=== PATIENT | female | born 1995 | race Two or more races ===

== ENCOUNTER 2024-12-08 08:34 | Emergency (ER) | payer OTHER ==
[~2024-12-08] VITALS: Ht 170.2 cm; Wt 85.0 kg
[2024-12-08] MEDS: SODIUM CHLORIDE 0.9% 1,000 ML IV ONE (08:51)
[2024-12-08 08:52] VITALS: TEMP 98.3
--- NOTE | 2024-12-08 08:53 | ED.PDOC ---
History of Present Illness HPI Comments 29F BIBA w/ prior hx of , and UTI, as well as the c/c of ABN vaginal bleeding. Pt report son having abnormal vaginal bleeding starting Wednesday, and being . Pt states on going to [facility], and having an US done w/ the results being that there was no heartbeat found. Pt called 911 today due from her va ginal bleeding which started on Wednesday worsened today, w/ periumbilical cramps of a 6/10 and N/V. Family hx f DM. Denies chills, fever, /D, SOB, CP. No other associated symptoms, modifiers, recent injuries or sick contacts present at this time. Time Seen by MD: 08:40 Reviewed Notes: Nurses Notes, Narcotics Investigator Notes, Medications, Allergies Allergies: Coded Allergies: NO KNOWN ALLERGIES (Unverified , 12/08/24) Information Source: Patient Mode of Arrival: EMS Severity: Moderate Timing: Days Duration: Since onset, Days Prehospital treatment: None Past Medical History PAST MEDICAL HISTORY: UTI'S Past Medical History (Other): Surgical History: Denies all surgeries AVIATION CONSULTANT History: No Pertinent AVIATION CONSULTANT History Family History Family History: Reviewed,noncontributory to illness, Family hx of DM Social History Smoker: Non-Smoker Alcohol: Denies ETOH Use Drugs: Denies Drug Use Lives In: Home Constitutional: denies: chills, diaphoresis, fatigue, fever, malaise, sweats, weakness, others EENTM: denies: blurred vision, double vision, ear bleeding, ear discharge, ear drainage, ear pain, ear ringing, eye pain, eye redness, hearing loss, mouth pain, mouth swelling, nasal discharge, nose bleeding, nose congestion, nose pain, photophobia, tearing, throat pain, throat swelling, voice changes, others Respiratory: denies: cough, hemoptysis, orthopnea, SOB at rest, shortness of breath, SOB with excertion, stridor, wheezing, others Cardiovascular: denies: chest pain, dizzy spells, diaphoresis, Dyspnea on exertion, edema, irregular heart beat, left arm pain, lightheadedness, palpitations, PND, syncope, others Gastrointestinal: reports: abdominal pain; denies: abdomen distended, blood streaked bowels, constipated, diarrhea, dysphagia, difficulty swallowing, hematemesis, melena, nausea, poor appetite, poor fluid intake, rectal bleeding, rectal pain, vomiting, others Genitourinary: reports: abnormal vagina bleeding; denies: burning, dyspareunia, dysuria, flank pain, frequency, hematuria, incontinence, pain, , vagina discharge, urgency, others Neurological: denies: dizziness, fainting, headache, left sided numbness, left sided weakness, numbness, paresthesia, pre-existing deficit, right sided numbness, right sided weakness, seizure, speech problems, tingling, tremors, weakness, others Musculoskeletal: denies: back pain, gout, joint pain, joint swelling, muscle pain, muscle stiffness, neck pain, others Integumetry: denies: bruises, change in color, change in hair/nails, dryness, laceration, lesions, lumps, rash, wounds, others Allergic/Immunocompromised: denies: Difficulty Healing, Frequent Infections, Hives, Itching, others Hematologic/Lymphatic: denies: anemia, blood clots, easy bleeding, easy bruising, swollen glands, others Endocrine: denies: excessive hunger, excessive sweating, excessive thirst, excessive urination, flushing, intolerance to cold, intolerance to heat, unexplained weight gain, unexplained weight loss, others Psychiatric: denies: anxiety, bipolar disorder, depression, hopeless, panic disorder, schizophrenia, sleepless, suicidal, others All Other Systems: Reviewed and Negative Physical Exam General Appearance: No Apparent Distress HEENT: Normal ENT Inspection, Pharynx Normal, TMs Normal Neck: Full Range of Motion, Non-Tender, Normal, Normal Inspection Respiratory: Chest Non-Tender, Lungs Clear, No Accessory Muscle Use, No Respiratory Distress, Normal Breath Sounds Cardiovascular: No Edema, No JVD, No Murmur, No Gallop, Normal Peripheral Pulses, Regular Rate/Rhythm Breast Exam: Deferred Gastrointestinal: No Organomegaly, No Pulsatile Mass, Normal Bowel Sounds, Soft, Suprapubic, Tenderness Genitalia: Deferred Pelvic: Deferred Rectal: Deferred Extremities: No calf tenderness, Normal capillary refill, Normal inspection, Normal range of motion, Non-tender, No pedal edema Musculoskeletal : Apperance: Normal Neurologic: Alert, copyman II-XII nml as Tested, No Motor Deficits, Normal Affect, Normal Mood, No Sensory Deficits Cerebellar Function: Normal Reflexes: Normal Skin: Dry, Normal Color, Warm Lymphatic: No Adenopathy Was a procedure done? Was a procedure done?: No Differential Dx Considerations may include: Complete , inevitable , dehydration X-Ray, Labs, Meds, VS Vital Signs Date Time Temp Pulse Resp B/P (MAP) Pulse Ox O2 Delivery O2 Flow Rate FiO2 12/08/24 08:52 98.3 100 18 102/74 (83) 99 98.3 Lab Test 12/08/24 08:56 Range/Units Beta HCG, Quantitative 2302.9 H 1.5-4.2 mIU/mL Current Medications Medications (Trade) Dose Ordered Sig/Juliette Route Start Time Stop Time Status Last Admin Sodium Chloride 1,000 ml @ 1,000 mls/hr Q1H ONCE IV 12/08/24 08:45 12/08/24 09:44 DC 12/08/24 08:51 IMPRESSION: 1. No intrauterine visualized. Correlate with clinical findings and serial beta HCG levels. Follow-up ultrasound could be considered if clinically indicated. 2. Endometrium is heterogeneous. There appear to be blood products in the endometrial canal and endocervical canal. Echogenic structure measuring up to 6 cm in the vaginal canal seen on transabdominal exams is not seen on transvaginal examination after voiding, likely also blood products. 3. Unremarkable sonographic appearance of both ovaries. ESSION: 1. No intrauterine visualized. Correlate with clinical findings and serial beta HCG levels. Follow-up ultrasound could be considered if clinically indicated. 2. Endometrium is heterogeneous. There appear to be blood products in the endometrial canal and endocervical canal. Echogenic structure measuring up to 6 cm in the vaginal canal seen on transabdominal exams is not seen on transvaginal examination after voiding, likely also blood products. 3. Unremarkable sonographic appearance of both ovaries. An IV Hep-Lock was established and the patient was given a 1 L bolus The patient was quantitative hCG is 2302 point The patient was discharged and will follow up with the primary care doctor The patient will return to the emergency department's condition worsens Images Reviewed?: Images reviewed and evaluated by me Time of 1ST Reevaluation: 09:10 Reevaluation 1ST: Unchanged Patient Education/Counseling: Diagnosis, Treatment, Prognosis, Need For Follow Up Family Education/Counseling: No Family Present Departure 1 Departure Time of Disposition: 11:01 Impression: Primary Impression: Inevitable Disposition: HOME / SELF CARE / HOMELESS Condition: Fair Discharged With: Self Critical Care Note Critical Care Time?: No Stability Stability form required: No Heart Score Heart Score: Heart Score Response (Comments) Value History N/A 0 EKG N/A 0 Age N/A 0 Risk Factors N/A 0 Troponin N/A 0 Total 0 I personally scribed for SARAHI SANDY MD ([email or web address]) on 12/08/24 at 08:53. Electronically submitted by Fransico Rojas ([place]). I personally scribed for SARAHI SANDY MD ([email or web address]) on 12/08/24 at 11:00. Electronically submitted by Fransico Rojas ([place]). SARAHI SANDY MD December 08, 2024 08:53
--- NOTE | 2024-12-08 10:50 | DVH ---
CLINICAL HISTORY: pain and bleeding COMPARISON:None TECHNIQUE: Transvaginal and transabdominal grayscale sonographic imaging of the uterus and ovaries wa s performed, assisted by color Doppler technique. Duplex Doppler ultrasound of both ovaries was also performed. FINDINGS: The uterus measures 8.8 x 5.3 x 4.7 cm. There is homogeneous echogenicity. Endometrial thic kness measures 10.1 cm, within normal limits for premenopausal. Endometrium is heterogeneous. No intr auterine visualized. Echogenic structure within the vaginal canal on the transabdominal images measuring up to 6.0 x 4.9 x 5.7 cm, not seen transvaginally after voiding. Possible blood products. Right ovary measures 2.5 x 1.5 x 2.6 cm. Arterial and venous blood flow demonstrated. Left ovary measures 2.0 x 1.3 x 2.4 cm. Arterial and venous blood flow demonstrated. IMPRESSION: 1. No intrauterine visualized. Correlate with clinical findings and serial beta HCG levels . Follow-up ultrasound could be considered if clinically indicated. 2. Endometrium is heterogeneous. There appear to be blood products in the endometrial canal and endoc ervical canal. Echogenic structure measuring up to 6 cm in the vaginal canal seen on transabdominal e xams is not seen on transvaginal examination after voiding, likely also blood products. 3. Unremarkable sonographic appearance of both ovaries.
[2024-12-08 12:08] VITALS: PULSE 83; RESP 19; O2SAT 97
[2024-12-08] MEDS: SODIUM CHLORIDE 0.9% 1,000 ML IVB ONE (12:22)
[2024-12-08 12:28] LABS: Basophils # (auto) 0 10 ^3/uL (0-0.2); Basophils % (auto) 0.3 % (0.0-2.0); Eosinophils # (auto) 0.1 10 ^3/uL (0-0.8); Eosinophils % (auto) 0.9 % (0.0-7.0); Hematocrit 34.8 % (36.0-46.0); Hemoglobin 11.7 g/dL (12.2-16.2); Lymphocytes # (auto) 2.5 10 ^3/uL (0.4-5.4); Lymphocytes % (auto) 29.6 % (10.0-50.0); Mean Corpuscular Hemoglobin 28.8 pg (28.0-32.0); Mean Corpuscular Hgb Conc. 33.6 g/dL (32.0-36.0); Mean Corpuscular Volume 85.8 fL (80.0-100.0); Monocytes # (auto) 0.5 10 ^3/uL (0-1.3); Monocytes % (auto) 5.9 % (0.0-12.0); Neutrophils # (auto) 5.3 10 ^3/uL (1.6-8.6); Neutrophils % (auto) 63.3 % (37.0-80.0); Nucleated Red Blood Cells % 0.1 %; Platelet Count (auto) 232 10^3/uL (140-450); Red Blood Cells 4.05 10^6/uL (4.0-5.20); White Blood Cell 8.4 10^3/uL (4.4-10.8)
[2024-12-08 12:32] LABS: Potassium 3.7 mmol/L (3.5-5.1); Sodium 141 mmol/L (136-145)
[2024-12-08 12:33] LABS: Anion Gap 10 (5-15); Carbon Dioxide 23 mmol/L (20-31)
[2024-12-08 12:34] LABS: Calcium 9.4 mg/dL (8.7-10.4); Chloride 108 mmol/L (98-107)
[2024-12-08 12:38] LABS: BUN/Creatinine Ratio 12.5 (10.0-20.0)
[2024-12-08 12:42] LABS: Blood Urea Nitrogen 8 mg/dL (9-23); Glucose 135 mg/dL (74-106)
[2024-12-08] MEDS: LACT. RINGERS/OXYTOCIN 20UNITS 1,000 ML IV ONE (12:43)
[2024-12-08 12:47] LABS: INR 1.06 (0.9-1.15); Partial Thromboplastin Time 25.4 SEC (24.5-34.5); Prothrombin Time 11.2 sec (9.3-11.8)
[2024-12-08 14:18] VITALS: BP 107/44; PULSE 81; RESP 27; O2SAT 99
--- NOTE | 2024-12-08 15:10 | DVHINCON2 ---
Date of service: December 08, [address] bhavana mathew md Reason for Consultation vag bleeding History of Present Illness pt presents with vag bleeding passage of tissue,sono reveals no iup,endo doesnt show any poc. pt passed tissue and blood clots ,bhcg was 2300 at 8am and she was passing tissue and blood clots Past Medical History na Past Surgical History na Family History na Social History Allergies: Coded Allergies: NO KNOWN ALLERGIES (Unverified , 12/08/24) Review of Systems Constitutional: no fever, chill, weight loss HEENT: no eye pain, no hearing loss, no oral lesion, no scleral icterus Heart: no chest pain, no chest pressure Lung: no cough, no dyspnea with exertion Abdomen: see HPI : no pain with urination, normal appearing urine Musculoskeletal: no joint pain, no muscle pain Neurological: no seizure, no loss of sensation, no weakness in extremities Pysch: no depression, no anxiety Derm: no rash, no jaundice Vital Signs Vital Signs Date Time Temp Pulse Resp B/P (MAP) Pulse Ox O2 Delivery O2 Flow Rate FiO2 12/08/24 14:18 81 27 107/44 (65) 99 12/08/24 12:08 Room Air* 0 21 12/08/24 08:52 98.3 98.3 Physical Exam SKIN: [nl ] HEENT: [nl] NECK: [nl] CARDIAC: [rrr] PULMONARY: [cta] ABDOMEN: [soft,nt] MUSCULOSKELETAL: [nl ] NEURO:nl pelvic- vag no blood clots,not bleeding actively ,large blood clot and tissue on bed noted cx ft,uterus 8 wks size,nt Labs/Diagnostic Data Labs Test 12/08/24 08:56 Range/Units White Blood Count 8.4 4.4-10.8 10^3/uL Red Blood Count 4.05 4.0-5.20 10^6/uL Hemoglobin 11.7 L 12.2-16.2 g/dL Hematocrit 34.8 L 36.0-46.0 % Mean Corpuscular Volume 85.8 80.0-100.0 fL Mean Corpuscular Hemoglobin 28.8 28.0-32.0 pg Mean Corpuscular Hemoglobin Concent 33.6 32.0-36.0 g/dL Red Cell Distribution Width 14.0 11.8-14.3 % Platelet Count 232 140-450 10^3/uL Mean Platelet Volume 7.9 6.9-10.8 fL Neutrophils (%) (Auto) 63.3 37.0-80.0 % Lymphocytes (%) (Auto) 29.6 10.0-50.0 % Monocytes (%) (Auto) 5.9 0.0-12.0 % Eosinophils (%) (Auto) 0.9 0.0-7.0 % Basophils (%) (Auto) 0.3 0.0-2.0 % Neutrophils # (Auto) 5.3 1.6-8.6 10 ^3/uL Lymphocytes # (Auto) 2.5 0.4-5.4 10 ^3/uL Monocytes # (Auto) 0.5 0-1.3 10 ^3/uL Eosinophils # (Auto) 0.1 0-0.8 10 ^3/uL Basophils # (Auto) 0 0-0.2 10 ^3/uL Nucleated Red Blood Cells 0.1 % Prothrombin Time 11.2 9.3-11.8 sec Prothrombin Time INR 1.06 0.9-1.15 Activated Partial Thromboplast Time 25.4 24.5-34.5 SEC Sodium Level 141 136-145 mmol/L Potassium Level 3.7 3.5-5.1 mmol/L Chloride Level 108 H 98-107 mmol/L Carbon Dioxide Level 23 20-31 mmol/L Anion Gap 10 5-15 Blood Urea Nitrogen 8 L 9-23 mg/dL Creatinine 0.64 0.550-1.02 mg/dL Glomerular Filtration Rate Calc 123 >90 mL/min BUN/Creatinine Ratio 12.5 10.0-20.0 Serum Glucose 135 H 74-106 mg/dL Calcium Level 9.4 8.7-10.4 mg/dL Beta HCG, Quantitative 2302.9 H 1.5-4.2 mIU/mL Primary Diagnosis vag bleeding sab 2' Diagnosis/Comorbidities compelet ab Plan dc home on cytotec,keflex,zofran cont with ivf and pitocin x2 hrs fu 1wk Plan discussed with: Patient Visit Coding OBGYN Date of Service: December 08, 2024 Billing Provider: MILDRED RAIN DO ACCOUNT ADJUSTER Common Visit Codes: 30069-FQOFVJL INP/OBS CARE (HIGH) ACCOUNT ADJUSTER Consultation Codes: 96508-ROJQUOPLF CONSULT <80MIN MILDRED RAIN DO December 08, 2024 15:10
[2024-12-08] MEDS ORDERED: ZOFR4T PO (15:40)
[2024-12-08] MEDS ORDERED: MISO200T67 PO (15:40)
[2024-12-08] MEDS ORDERED: CEPH250C PO (15:40)
== END 2024-12-08 15:55 | disposition home or self-care (01) ==
LOC: ER 08:34 → EDBD 08:34 → ER 15:55
DX: O26.20 Pregnancy care for patient with recurrent pregnancy loss, unspecified trimester (principal); R10.2 Pelvic and perineal pain
CPT/HCPCS: 36415; 76801; 76817; 80048; 84702; 85025; 85610; 85730; 86850; 86900; 86901; 96361; 96365; 96366; 99285; J2590; J7030